=== PATIENT | female | born 1995 | race Caucasian/White ===

== ENCOUNTER 2018-01-01 17:42 | Outpatient (CLI) | payer BC ==
--- NOTE | 2018-01-01 19:40 | RAD ---
THREE VIEWS RIGHT FOOT: 01/01/18 INDICATION: Right foot pain after jumping and landing on object wrong with right foot pain. FINDINGS: There is a mildly displaced internally rotated spiral fracture involving the distal metatarsal shaft of the fifth digit. Lisfranc alignment is preserved. No additional acute osseous abnormality is evide nt. IMPRESSION: Minimally displaced right fifth digit metatarsal shaft fracture. POS: BH
== END 2018-01-01 17:43 | disposition home or self-care (01) ==
LOC: SCSRAD 17:42
PROVIDERS: ATTEND Family Medicine
DX: M79.671 Pain in right foot (principal); S92.351A Displaced fracture of fifth metatarsal bone, right foot, initial encounter for closed fracture

== ENCOUNTER 2018-02-06 16:49 | Outpatient (CLI) | payer BC ==
--- NOTE | 2018-02-06 18:30 | RAD ---
RIGHT FOOT RADIOGRAPHS THREE VIEWS: 02/06/18 PROVIDED CLINICAL HISTORY: Fifth metatarsal fracture. FINDINGS: Comparison is made with the examination performed 01/01/18. Obliquely oriented fracture involving the fifth metatarsal neck and distal shaft region is redemonstrated, without evidence for significant ch eulalia in position or alignment. There is surrounding callus formation, compatible with progression in healing. Fracture lucency persists. The examination appears otherwise unchanged. IMPRESSION: Findings compatible with progression in healing of fifth metatarsal fracture. POS: [id number]
== END 2018-02-06 16:50 | disposition home or self-care (01) ==
LOC: SCSRAD 16:49
PROVIDERS: ATTEND Family Medicine
DX: S92.351D Displaced fracture of fifth metatarsal bone, right foot, subsequent encounter for fracture with routine healing (principal)